=== PATIENT | female | born 1940 | race Caucasian/White ===

== ENCOUNTER 2016-06-06 09:07 | Day surgery (SDC) | payer OTHER ==
[~2016-06-06] VITALS: Ht 152.4 cm; Wt 78.0 kg
[~2016-06-06 09:07] MED LIST: AMOX-367 PO; ASPI325T4 PO; LISI-167 PO; LISI40TA PO
[2016-06-06] MEDS ORDERED: LACTATED RINGERS 1,000 ML IV SCH (09:42)
[2016-06-06] MEDS ORDERED: FENO48TA16 PO (09:46)
[2016-06-06] MEDS ORDERED: ALEN70TA3 PO (09:46)
[2016-06-06 09:48] VITALS: BP 130/68
[2016-06-06] MEDS ORDERED: MIDAZOLAM 1 MG/ML, 2ML ONE (09:50)
[2016-06-06] MEDS ORDERED: KETOROLAC 30 MG/1 ML ONE (10:00)
[2016-06-06] MEDS ORDERED: LIDOCAINE 1%, 2ML SQ PRN (10:00)
[2016-06-06] MEDS ORDERED: PROPOFOL 10 MG/ML, 20ML ONE (10:00)
[2016-06-06] MEDS ORDERED: METOPROLOL 1 MG/ML, 5ML IV PRN (10:30)
[2016-06-06] MEDS ORDERED: LABETALOL 5MG/ML, 20ML IV PRN (10:30)
[2016-06-06] MEDS ORDERED: MEPERIDINE/PF 25MG/0.5ML IVPush PRN (10:30)
[2016-06-06] MEDS ORDERED: ONDANSETRON 2MG/ML, 2ML IVPush PRN (10:30)
[2016-06-06] MEDS ORDERED: hydrALAzine 20 MG/ML, 1ML IV PRN (10:30)
[2016-06-06] MEDS ORDERED: EPHEDRINE 50 MG/ML, 1ML IVPush PRN (10:30)
[2016-06-06] MEDS ORDERED: FENTANYL PF 100 MCG/2ML IV PRN (10:30)
[2016-06-06] MEDS ORDERED: OXYcodone 5 MG/5 ML ORAL.SOL UDC PO PRN (10:30)
[2016-06-06] MEDS ORDERED: PROMETHAZINE 25 MG/ML, 1ML IV PRN (10:30)
[2016-06-06] MEDS ORDERED: ALBUTEROL SULFATE 2.5 MG/3 ML NPPB PRN (10:30)
[2016-06-06] MEDS ORDERED: MIDAZOLAM 1 MG/ML, 2ML IV PRN (10:30)
[2016-06-06] MEDS ORDERED: HYDROmorphone 1 MG/ML, 1ML IV PRN (10:30)
[2016-06-06] MEDS ORDERED: ACETAMINOPHEN 325 MG TABLET PO PRN (10:30)
== END 2016-06-06 12:45 | disposition home or self-care (01) ==
LOC: OUT 09:07
PROVIDERS: ATTEND Internal Medicine Geriatric Medicine
DX: D12.0 Benign neoplasm of cecum (principal); K64.0 First degree hemorrhoids; K29.40 Chronic atrophic gastritis without bleeding; I10 Essential (primary) hypertension; F41.9 Anxiety disorder, unspecified; I49.5 Sick sinus syndrome; Z87.11 Personal history of peptic ulcer disease; Z85.41 Personal history of malignant neoplasm of cervix uteri; Z90.710 Acquired absence of both cervix and uterus; Z95.810 Presence of automatic (implantable) cardiac defibrillator; Z98.49 Cataract extraction status, unspecified eye; Z96.1 Presence of intraocular lens; Z87.891 Personal history of nicotine dependence; Z82.49 Family history of ischemic heart disease and other diseases of the circulatory system; Z82.3 Family history of stroke
CPT/HCPCS: 43239; 45380; 88305; 93005; J1885; J2250; J2704; J7120

== ENCOUNTER → 2017-03-26 | Outpatient (CLI) | payer MEDICARE ==
[~2017-03-26] MED LIST changes: +ALEN70TA3 PO; +ASPI325T17 PO; -ASPI325T4 PO; +FENO48TA16 PO
[2017-03-26 12:37] LABS: MICROSCOPIC NOT IND
[2017-03-26 12:40] LABS: CULTURE INDICATED? NO
[2017-03-26 12:56] LABS: CHOL/HDL RATIO 5.5; LDL/HDL RATIO 3.4 (0.5-3.0)
[2017-03-26 13:05] LABS: HEMOGLOBIN A1C 5.7 % (4.2-6.3)
== END ==
LOC: CFH 08:10
PROVIDERS: ATTEND Nurse Practitioner Primary Care
DX: Z13.220 Encounter for screening for lipoid disorders (principal); R53.82 Chronic fatigue, unspecified; E78.2 Mixed hyperlipidemia; E88.81 Metabolic syndrome and other insulin resistance; R71.8 Other abnormality of red blood cells; D72.829 Elevated white blood cell count, unspecified; E55.9 Vitamin D deficiency, unspecified; R41.82 Altered mental status, unspecified; M54.2 Cervicalgia; R20.2 Paresthesia of skin; R01.1 Cardiac murmur, unspecified; M81.0 Age-related osteoporosis without current pathological fracture; I10 Essential (primary) hypertension; G47.30 Sleep apnea, unspecified; L03.90 Cellulitis, unspecified; R19.7 Diarrhea, unspecified; Z79.899 Other long term (current) drug therapy; Z72.0 Tobacco use
CPT/HCPCS: 36415; 80061; 81003; 82043; 83036

== ENCOUNTER 2020-10-25 13:34 | Emergency (ER) | payer MEDICARE ==
[~2020-10-25] VITALS: Ht 165.1 cm; Wt 95.0 kg
[~2020-10-25 13:34] MED LIST changes: -LISI40TA PO; +LISI40TA9 PO
--- NOTE | 2020-10-25 14:15 | NUR ---
patient to room from lobby
--- NOTE | 2020-10-25 14:40 | NUR ---
Took report from Sharon Giles RN, assume care at this time.
--- NOTE | 2020-10-25 14:41 | NUR ---
Took report from Sharon Giles RN, assume care at this time.
[2020-10-25 15:11] LABS: BASOPHILS % (AUTO) 0 % (0-1); EOSINOPHILS % (AUTO) 3 % (1-7); LYMPHOCYTES % (AUTO) 19 % (22-44); MEAN CORPUSCULAR HEMOGLOBIN 30.6 pg (27.0-34.8); MEAN CORPUSCULAR HGB CONC 33.6 g/dL (32.4-35.8); MEAN PLATELET VOLUME 7.3 fL (7.4-10.4); MONOCYTES % (AUTO) 11 % (2-9); NEUTROPHILS % (AUTO) 67 % (42-75); PLATELET COUNT 220 x10^3/uL (130-400); RED BLOOD COUNT 4.85 x10^6/uL (3.82-5.3); RED CELL DISTRIBUTION WIDTH 13.9 % (9.6-15.2)
[2020-10-25 15:16] LABS: ALANINE AMINOTRANSFERASE 31 U/L (12-78); ALBUMIN 3.5 g/dL (3.4-5.0); ANION GAP 5 mmol/L (5-15); CALCIUM 8.7 mg/dL (8.5-10.1); CHLORIDE 105 mmol/L (98-107); CREATININE 0.82 mg/dL (0.55-1.02)
[2020-10-25 15:26] LABS: ALKALINE PHOSPHATASE 78 U/L (45-117); BILIRUBIN,TOTAL 0.4 mg/dL (0.2-1.0); TOTAL PROTEIN 7.2 g/dL (6.4-8.2); TROPONIN I < 0.015 ng/mL (0.000-0.045)
[2020-10-25] MEDS ORDERED: DIPHENHYDRAMINE 50 MG/ML, 1ML IV ONE (16:00)
[2020-10-25] MEDS ORDERED: SODIUM CHLORIDE FLUSH 10ML SYR IVF ONE (16:00)
[2020-10-25 16:09] LABS: HCT (SEDRATE) 44.2 % (34.6-47.8)
[2020-10-25] MEDS ORDERED: FAMOTIDINE 20 MG/2 ML ONE (16:25)
[2020-10-25] MEDS ORDERED: DIPHENHYDRAMINE 50 MG/ML, 1ML ONE (16:25)
[2020-10-25] MEDS ORDERED: FAMOTIDINE 20 MG/2 ML IVPush ONE (16:30)
--- NOTE | 2020-10-25 17:13 | NUR ---
PT TO CT
[2020-10-25] MEDS ORDERED: OMNIPAQUE 350 MG/ML, 100ML BOTTLE ONE (17:37)
[2020-10-25] MEDS ORDERED: OXYcodone/APAP 5/325MG TABLET PO ONE (18:00)
[2020-10-25 18:20] VITALS: BP 124/74
== END 2020-10-25 18:22 | disposition home or self-care (01) ==
LOC: ED 18:00
DX: G89.29 Other chronic pain (principal); M79.671 Pain in right foot; R60.0 Localized edema; R06.00 Dyspnea, unspecified; J44.9 Chronic obstructive pulmonary disease, unspecified; I10 Essential (primary) hypertension
CPT/HCPCS: 36415; 71045; 71275; 80053; 83880; 84443; 84484; 85025; 85651; 86140; 93005; 93970; 96374; 96375; 99285; J1200; Q9967